=== PATIENT | female | born 1995 | race African-American/Black ===

== ENCOUNTER 2016-10-16 13:52 | Emergency (ER) | payer MEDICAID ==
[~2016-10-16] VITALS: Ht 160 cm; Wt 47.0 kg
[2016-10-16] MEDS ORDERED: ONDANSETRON HCL 4MG TABLET PO ONE (16:15)
[2016-10-16] MEDS ORDERED: KETOROLAC 60MG/2ML VIAL IM ONE (16:15)
[2016-10-16 16:21] VITALS: BP 124/90
== END 2016-10-16 16:27 | disposition home or self-care (01) ==
LOC: ER 15:10
DX: J06.9 Acute upper respiratory infection, unspecified (principal); J45.909 Unspecified asthma, uncomplicated
CPT/HCPCS: 96372; 99283; J1885; Q0162; Z7610

== ENCOUNTER 2016-11-25 16:24 | Emergency (ER) | payer MEDICAID ==
[~2016-11-25] VITALS: Ht 157.5 cm; Wt 55.0 kg
[2016-11-25] MEDS ORDERED: KETOROLAC 60MG/2ML VIAL IM ONE (21:00)
[2016-11-25] MEDS ORDERED: KETOROLAC 30MG/ML VIAL IV STA (21:01)
[2016-11-25] MEDS ORDERED: SODIUM CHLORIDE 0.9% 1,000 ML IV ONE (21:01)
[2016-11-25] MEDS ORDERED: ONDANSETRON HCL 4MG/2ML VIAL IV STA (21:01)
[2016-11-25] MEDS ORDERED: MORPHINE SULFATE 4 MG/ML CPJ (NOT FOR IM USE) IV STA (21:01)
[2016-11-25 21:21] LABS: BASOPHILS % 0.6 % (0.0-2.0); EOSINOPHILS % 0.7 % (0.0-5.0); HEMATOCRIT. 36.7 % (36.0-48.0); HEMOGLOBIN. 12.4 g/dL (12.0-16.0); LYMPHOCYTES % 12.1 % (20.0-50.0); MEAN CORPUSCULAR HEMOGLOBIN 28.8 pg (28.0-32.0); MEAN CORPUSCULAR VOLUME 85.5 fL (81.0-99.0); MEAN PLATELET VOLUME 9.7 fl (7.4-10.4); MONOCYTES % 5.7 % (2.0-8.0); NEUTROPHILS % 80.9 % (40.0-76.0); PLATELET 264 x1000/uL (130-400); RED BLOOD CELL COUNT 4.29 mill/uL (4.2-5.4); RED CELL DISTRIBUTION WIDTH 14.1 % (11.6-14.6)
[2016-11-25 21:26] LABS: INR 1.1; PROTHROMBIN TIME 11.2 sec
[2016-11-25 21:29] LABS: CARBON DIOXIDE 26 mEq/L (21-32); CHLORIDE 106 mEq/L (98-107)
[2016-11-25 21:34] LABS: CLARITY URINE CLOUDY (CLEAR); COLOR URINE YELLOW (YELLOW); GLUCOSE URINE NEGATIVE (NEGATIVE); KETONES URINE 4+ (NEGATIVE); LEUKOCYTE ESTERASE URINE 3+ (NEGATIVE); NITRITE URINE NEGATIVE (NEGATIVE); OCCULT BLOOD URINE 1+ (NEGATIVE); PROTEIN URINE 2+ (NEGATIVE)
[2016-11-25] MEDS ORDERED: CEFTRIAXONE 1 G PREMIX 50 ML IV ONE (22:15)
[2016-11-25 23:30] VITALS: BP 115/64
== END 2016-11-25 22:30 | disposition home or self-care (01) ==
LOC: ER 21:19
DX: N12 Tubulo-interstitial nephritis, not specified as acute or chronic (principal); R07.81 Pleurodynia; J45.909 Unspecified asthma, uncomplicated
CPT/HCPCS: 36415; 80053; 81001; 81025; 83690; 85025; 85610; 96361; 96365; 96375; 99284; J0696; J1885; J2270; J2405; J7030; Z7610